=== PATIENT | female | born 1980 | race Caucasian/White ===

== ENCOUNTER 2017-01-23 07:36 | Emergency (ER) | payer OTHER ==
[~2017-01-23] VITALS: Ht 160 cm; Wt 63.5 kg
--- NOTE | ~2017-01-23 | CR126 ---
[facility] A Service of [facility] RADIOLOGY TEXT RESULTS PATIENT: SAI LI LOCATION: SED : 76 UNIT #: [id number] AGE: [address]: Crystal Mckeon MD SEX: F ORDER DR: [id number] [address] [address] [id number] MR#: [id number] Acc #: [id number] NAME: SAI LI : 1980 SEX: F STUDY DATE/TIME: 01/23/2017 7:52 UNIT: SED ROOM: STUDY DESCRIPTION: CR Foot Complete Min 3 View Lt Attending Physician: Crystal Mckeon M.D. Ordering Physician: Crystal Mckeon M.D. Primary Care Physician: Rita Ballesteros M.D. MEDICAL IMAGING REPORT This report is preliminary unless electronic signature is present. EXAM Left foot. HISTORY Foot pain laterally, trauma this morning. Pain left fifth toe. TECHNIQUE 3 views foot were obtained. FINDINGS The tarsal, metatarsal, and phalangeal elements are all anatomically normal in position and alignment. There are no articular defects. No fractures or radiopaque foreign bodies in the soft tissues are apparent. IMPRESSION Normal left foot. Dictated by... Yefri De León M.D. THIS IS AN ELECTRONICALLY VERIFIED REPORT Yefri De León M.D. at 01/23/2017 4:35 PM RLF/gz TD: 01/23/2017 13:24 JOB #: [id number] MEDICAL IMAGING REPORT Page 1 of 1
[~2017-01-23 07:36] MED LIST: AUGMENTIN PO; BENZONATATE PO; CLARITIN10 MG PO; DICLOFENAC PO; FLEXERIL PO; NAPROXEN PO; NO MEDICATIONS; NORFLEX100 M1 PO; SINGULAIR PO; VALTREX PO; ZOFRAN PO; ZYRTEC10 M2
== END 2017-01-23 08:24 | disposition home or self-care (01) ==
LOC: SED 07:36
DX: S93.505A Unspecified sprain of left lesser toe(s), initial encounter (principal); W22.8XXA Striking against or struck by other objects, initial encounter; Y92.009 Unspecified place in unspecified non-institutional (private) residence as the place of occurrence of the external cause
CPT/HCPCS: 29280; 73630; 99283